=== PATIENT | male | born 1955 | race Caucasian/White ===

== ENCOUNTER 2019-02-12 11:18 | Emergency (ER) | payer OTHER ==
[~2019-02-12] VITALS: Ht 165.1 cm; Wt 84.5 kg
[2019-02-12 11:25] VITALS: Ht 165.1 cm; Wt 84.5 kg
[2019-02-12 11:58] LABS: BASOPHIL % 0.3 % (0-2); PLATELET COUNT 160 x10^3mcL (130-400); RED CELL DISTRIBUTION WIDTH 13.4 % (11.5-14.5)
[2019-02-12 12:01] LABS: CALCIUM 8.4 mg/dL (8.5-10.1); CARBON DIOXIDE 23.5 mmol/L (21-32); CHLORIDE SERUM 100 mmol/L (98-107); GFR1 > 60 mL/min; GLUCOSE SERUM 375 mg/dL (74-106); POTASSIUM SERUM 3.7 mmol/L (3.5-5.1); SODIUM SERUM 135 mmol/L (136-145)
[2019-02-12 12:05] LABS: ALKALINE PHOSPHATASE 86 U/L (46-116); ALT/SGPT 35 U/L (16-63); AST/SGOT 22 U/L (15-37); BILIRUBIN TOTAL 0.6 mg/dL (0.20-1.00); TOTAL PROTEIN, SERUM 8.2 g/dL (6.4-8.2)
[2019-02-12 12:10] LABS: ALBUMIN 3.2 g/dL (3.4-5.0)
[2019-02-12 13:03] LABS: UA SPECIFIC GRAVITY 1.015 (1.005-1.035); microscopic required? YES; urine erythrocyte TRACE (NEGATIVE)
[2019-02-12 13:27] VITALS: BP 127/72
== END 2019-02-12 13:43 | disposition home or self-care (01) ==
LOC: ED 11:18
PROVIDERS: Emergency Medicine
DX: E11.65 Type 2 diabetes mellitus with hyperglycemia (principal); R53.1 Weakness
CPT/HCPCS: 82962; J1815; J7030; Q0092